=== PATIENT | male | born 1980 | race Caucasian/White ===

== ENCOUNTER 2018-04-14 23:41 | Inpatient (IN) ==
[2018-04-15] MEDS ORDERED: Sod Chloride 0.9% Inj 1,000 ML IV.CONT SCH (00:30)
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
[2018-04-15] MEDS ORDERED: Diphtheria/Tetanus/Pertussis Vaccine Inj 0.5 ML Syringe IM ONE (01:24)
[2018-04-15] MEDS ORDERED: ceFAZolin 2 GM Premix Inj 2 GM/50 ML PIGGYBACK IV.SIG ONE (01:24)
[2018-04-15] MEDS ORDERED: Morphine Inj 4 MG/ML Vial IV.PUSH PRN (03:21)
[2018-04-15] MEDS: Sod Chloride 0.9% Inj 1,000 ML IV.CONT SCH ×3 (03:30→20:35)
[2018-04-15] MEDS ORDERED: Pantoprazole Inj 40 MG Vial IV.PUSH SCH (04:00)
[2018-04-15] MEDS: Methocarbamol 500 MG Tablet PO SCH ×4 (06:27→21:28)
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
[2018-04-15] MEDS: Senna/Docusate Sodium 8.6/50 MG Tablet PO SCH ×2 (10:12→20:37)
[2018-04-15] MEDS: Famotidine 20 MG Tablet PO SCH ×2 (10:12→20:37)
[2018-04-15] MEDS: Lidocaine 5% Patch T-DERMAL SCH (10:46)
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
[2018-04-16] MEDS: Sod Chloride 0.9% Inj 1,000 ML IV.CONT SCH ×2 (01:04→06:53)
[2018-04-16 04:53] LABS: Baso % (Auto) 0.5 % (0.0-2.0); Eos % (Auto) 0.3 % (0.0-4.0); Hematocrit 37.2 % (39.0-51.0); Hemoglobin 12.5 gm/dL (13.0-17.0); Lymph # (Auto) 1.8 th/mm3 (1.0-4.8); Lymph % (Auto) 19.4 % (9.0-44.0); Mean Corpuscular HGB Conc 33.6 % (32.0-36.0); Mean Corpuscular Hemoglobin 28.7 pg (27.0-34.0); Mean Corpuscular Volume 85.5 fL (80.0-100.0); Mean Platelet Volume 9.1 fL (7.0-11.0); Mono # (Auto) 0.6 th/mm3 (0.0-0.9); Mono % (Auto) 6.6 % (0.0-8.0); Neut # (Auto) 6.9 th/mm3 (1.8-7.7); Neut % (Auto) 73.2 % (16.0-70.0); Platelet Count 170 th/mm3 (150-450); Red Blood Count 4.35 mil/mm3 (4.50-5.90); Red Cell Distribution Width 13.5 % (11.6-17.2); White Blood Count 9.4 th/mm3 (4.0-11.0)
[2018-04-16] MEDS: Methocarbamol 500 MG Tablet PO SCH ×2 (05:07→14:37)
[2018-04-16 05:09] LABS: Carbon Dioxide 25.9 meq/L (21.0-32.0); Potassium 3.5 meq/L (3.5-5.1)
--- NOTE | 2018-04-16 05:53 | XR ---
EXAM DATE: 04/16/2018 4:42 AM EST AGE/SEX: 38 years / Male INDICATIONS: PTX. CLINICAL DATA: This is the patient's subsequent encounter. Patient reports that signs and symptoms h ave been present for 2 days and indicates a pain score of 9/10. MEDICAL/SURGICAL HISTORY: None. None. COMPARISON: [facility] [place], CHEST 1V SINGLE AP, 04/15/2018. . FINDINGS: A single AP view of the chest demonstrates left basilar infiltrate. Right lung clear. Heart normal in size. The cardiomediastinal contours are unremarkable. Osseous structures are intact. CONCLUSION: 1. Left basilar infiltrate. 2. No evidence for pneumothorax. Electronically signed by: Jeffrey Manrique MD Board Certified Radiologist 04/16/2018 5:52 AM EST
[2018-04-16 07:58] VITALS: RESP 18
[2018-04-16] MEDS: Senna/Docusate Sodium 8.6/50 MG Tablet PO SCH (11:22)
[2018-04-16] MEDS: Famotidine 20 MG Tablet PO SCH (11:26)
[2018-04-16] MEDS: Lidocaine 5% Patch T-DERMAL SCH (11:31)
[2018-04-16 12:10] VITALS: BP 146/89; PULSE 96; TEMP 98; O2SAT 96
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
== END 2018-04-16 15:06 | disposition home or self-care (01) | DRG 200 ==
LOC: NEPD 23:41 → NEDA 04-15 00:27 → NEDH 04-15 06:56 → N07 04-15 17:53
PROVIDERS: ADMIT Surgery; ATTEND Surgery
CPT/HCPCS: 71010; 71045; 73010; 80048; 85025; 90715; 94150; 94640; 94664; 94665; 97110; 97162; 97166; 99285; C9113; E0113; J0690; J2270; J2405; J7030; L0150; L0172